=== PATIENT | female | born 1940 | race Caucasian/White ===

== ENCOUNTER 2023-12-11 12:20 | Inpatient (IN) | payer MEDICARE ==
[~2023-12-11] VITALS: Ht 167.6 cm; Wt 95.3 kg
[2023-12-11] MEDS ORDERED: ZIPRASIDONE 20 MG VIAL IM STA (12:42)
[2023-12-11] MEDS ORDERED: LACTATED RINGER'S 1,000 ML INJ ONE ×2 (12:45→14:00)
[2023-12-11 13:25] LABS: BASOPHILS % 0.2 % (0.0-1.0); EOSINOPHILS # (AUTO) 0.1 (0.0-0.4); EOSINOPHILS % 0.3 % (0.0-6.0); HEMATOCRIT 47.9 % (34.2-44.1); HEMOGLOBIN 15.6 g/dL (12.0-16.0); LYMPHOCYTES # (AUTO) 0.8 (1.0-3.2); LYMPHOCYTES % 5.2 % (18.0-39.1); MEAN CORPUSCULAR HGB CONC 32.6 g/dL (31-35); MEAN CORPUSCULAR VOLUME 92.1 fL (81-99); MONOCYTES # (AUTO) 0.9 (0.2-0.8); MONOCYTES % 5.9 % (4.4-11.3); NEUTROPHILS % 87.2 % (38.7-80.0); PLATELET COUNT 165 x10e3/uL (140-360); RED CELL DISTRIBUTION WIDTH 13.2 % (11.7-14.4); WHITE BLOOD COUNT 16.03 x10e3/uL (4.8-10.8)
[2023-12-11 13:33] LABS: CLARITY,URINE SL CLOUDY (CLEAR); COLOR,URINE YELLOW (YELLOW)
[2023-12-11 13:34] LABS: LEUKOCYTE ESTERASE ,URINE NEGATIVE (NEGATIVE); NITRITE,URINE NEGATIVE (NEGATIVE); PH,URINE 5.5 (5 - 7)
[2023-12-11 13:35] LABS: BILIRUBIN,URINE SMALL (NEGATIVE); GLUCOSE, URINE 500 (NEGATIVE); KETONES,URINE 2+ (NEGATIVE); PROTEIN,URINE DIPSTICK 1+ (NEGATIVE); URINE UROBILINOGEN 0.2 mg/dL (0.2 - 1)
[2023-12-11 13:41] LABS: RBC,URINE 0-5 /HPF (0-5); WBC,URINE (MAN) 0-5 /HPF (0-5)
[2023-12-11 13:42] LABS: BACTERIA,URINE FEW /HPF; EPITHELIAL CELLS,URINE MODERATE /LPF; YEAST,URINE FEW
[2023-12-11 13:44] LABS: ALBUMIN 4.2 g/dL (3.5-5.0); ALBUMIN/GLOBULIN RATIO 0.9 (0.8-2.0); ANION GAP 21.1 mmol/L (8-16); BILIRUBIN,TOTAL 1.3 mg/dL (0.2-1.2); CALCIUM 11.1 mg/dL (8.4-10.2); CREATININE, SERUM 1.4 mg/dL (0.57-1.11); POTASSIUM 4.1 mmol/L (3.5-5.1); TOTAL PROTEIN 8.8 g/dL (6.5-8.1)
[2023-12-11] MEDS ORDERED: INSULIN REGULAR, HUMAN 100 UNIT/1 ML IV ONE (14:00)
[2023-12-11 14:45] VITALS: PULSE 102; RESP 18; O2SAT 96
[2023-12-11 16:04] VITALS: BP 157/97; PULSE 63; RESP 19; TEMP 97.9; O2SAT 96
[2023-12-11] MEDS: SODIUM CHLORIDE 0.9% 1000ML 1,000 ML IV SCH (16:21)
[2023-12-11] MEDS ORDERED: NAMZARIC 28 MG1 EACH (18:33)
[2023-12-11] MEDS ORDERED: QUETIAPINE FUMA25 MG PO (18:33)
[2023-12-11] MEDS ORDERED: LIPITOR20 MG PO (18:33)
[2023-12-11] MEDS ORDERED: INSULIN GL100 UNIT/3 (18:33)
[2023-12-11] MEDS ORDERED: AMLODIPINE BESY10 MG PO (18:33)
[2023-12-11 19:00] VITALS: BP 139/94; PULSE 73; RESP 18; TEMP 98; O2SAT 94
[2023-12-11 20:00] VITALS: BP 139/94; PULSE 73; RESP 18; TEMP 98; O2SAT 94
[2023-12-11 20:15] VITALS: PULSE 71; RESP 18; O2SAT 96
[2023-12-11] MEDS ORDERED: DEXTROSE 50% SYRINGE 50 ML IV PRN (20:45)
[2023-12-11 21:00] VITALS: BP 139/94; PULSE 78; RESP 18; TEMP 98; O2SAT 94
[2023-12-11] MEDS: INSULIN GLARGINE 100 UNITS/ML VIAL SQ SCH (21:30)
[2023-12-11] MEDS: INSULIN LISPRO 100 UNIT/1 ML 3ML VIAL SQ SCH (21:30)
[2023-12-11] MEDS: ATORVASTATIN 20 MG TAB PO SCH (21:30)
[2023-12-11] MEDS: ZIPRASIDONE 20 MG VIAL IM PRN (21:30)
[2023-12-12] VITALS (12 sets, daily range): BP systolic 115–149; BP diastolic 59–113; PULSE 74–104; RESP 16–18; TEMP 97–98.5; O2SAT 93–96
[2023-12-12] MEDS: SODIUM CHLORIDE 0.9% 1000ML 1,000 ML IV SCH (00:59)
[2023-12-12] MEDS: ZIPRASIDONE 20 MG VIAL IM PRN ×2 (01:02→12:52)
[2023-12-12] MEDS: INSULIN LISPRO 100 UNIT/1 ML 3ML VIAL SQ SCH ×5 (01:04→21:00)
[2023-12-12] MEDS: AMLODIPINE BESYLATE 10 MG TAB PO SCH (06:12)
[2023-12-12 06:19] LABS: BASOPHILS % 0.3 % (0.0-1.0); EOSINOPHILS % 0.2 % (0.0-6.0); HEMATOCRIT 43.4 % (34.2-44.1); HEMOGLOBIN 13.9 g/dL (12.0-16.0); LYMPHOCYTES # (AUTO) 1.1 (1.0-3.2); LYMPHOCYTES % 9.8 % (18.0-39.1); MEAN CORPUSCULAR HEMOGLOBIN 29.9 pg (28-32); MEAN CORPUSCULAR VOLUME 93.3 fL (81-99); MONOCYTES % 8.6 % (4.4-11.3); NEUTROPHILS # (AUTO) 9.1 (2.1-6.9); NEUTROPHILS % 79.7 % (38.7-80.0); PLATELET COUNT 146 x10e3/uL (140-360); RED BLOOD COUNT 4.65 x10e6/uL (3.6-5.1); RED CELL DISTRIBUTION WIDTH 13.4 % (11.7-14.4); WHITE BLOOD COUNT 11.34 x10e3/uL (4.8-10.8)
[2023-12-12 06:33] LABS: ANION GAP 17.1 mmol/L (8-16); CALCIUM 9.7 mg/dL (8.4-10.2); CREATININE, SERUM 0.87 mg/dL (0.57-1.11)
[2023-12-12 06:43] LABS: POTASSIUM 3.1 mmol/L (3.5-5.1)
[2023-12-12] MEDS ORDERED: QUETIAPINE FUMARATE 25 MG TAB PO SCH (09:00)
[2023-12-12] MEDS ORDERED: SODIUM CHLORIDE 0.45% 1,000 ML ONE ×2 (11:29→13:02)
[2023-12-12] MEDS: SODIUM BICARBONATE 8.4% 50 ML in SODIUM CHLORIDE 0.45% 1,000 ML IV SCH (17:29)
[2023-12-12] MEDS: QUETIAPINE FUMARATE 25 MG TAB PO SCH ×2 (17:29→21:08)
[2023-12-12] MEDS ORDERED: IOPAMIDOL 370 MG/ML 100 ML INFUS..BTL INJ ONE (18:43)
[2023-12-12] MEDS: INSULIN GLARGINE 100 UNITS/ML VIAL SQ SCH (21:00)
[2023-12-12] MEDS: ATORVASTATIN 20 MG TAB PO SCH (21:09)
[2023-12-13] VITALS (8 sets, daily range): BP systolic 128–148; BP diastolic 89–105; PULSE 62–79; RESP 17–20; TEMP 97.6–98.3; O2SAT 92–95
[2023-12-13] MEDS: AMLODIPINE BESYLATE 10 MG TAB PO SCH (05:35)
[2023-12-13 05:55] LABS: BASOPHILS % 0.2 % (0.0-1.0); EOSINOPHILS % 0.4 % (0.0-6.0); HEMATOCRIT 42.3 % (34.2-44.1); HEMOGLOBIN 13.6 g/dL (12.0-16.0); LYMPHOCYTES # (AUTO) 1.3 (1.0-3.2); LYMPHOCYTES % 15.6 % (18.0-39.1); MEAN CORPUSCULAR HEMOGLOBIN 29.9 pg (28-32); MEAN CORPUSCULAR HGB CONC 32.2 g/dL (31-35); MONOCYTES # (AUTO) 0.8 (0.2-0.8); MONOCYTES % 9.5 % (4.4-11.3); NEUTROPHILS # (AUTO) 6.1 (2.1-6.9); NEUTROPHILS % 72.6 % (38.7-80.0); PLATELET COUNT 138 x10e3/uL (140-360); RED BLOOD COUNT 4.55 x10e6/uL (3.6-5.1); RED CELL DISTRIBUTION WIDTH 13.6 % (11.7-14.4); WHITE BLOOD COUNT 8.33 x10e3/uL (4.8-10.8)
[2023-12-13] MEDS: SODIUM BICARBONATE 8.4% 50 ML in SODIUM CHLORIDE 0.45% 1,000 ML IV SCH (06:10)
[2023-12-13 06:27] LABS: ANION GAP 14.7 mmol/L (8-16); CALCIUM 9.1 mg/dL (8.4-10.2); CREATININE, SERUM 0.76 mg/dL (0.57-1.11)
[2023-12-13 06:34] LABS: POTASSIUM 2.7 mmol/L (3.5-5.1)
[2023-12-13] MEDS: INSULIN LISPRO 100 UNIT/1 ML 3ML VIAL SQ SCH ×4 (07:30→21:00)
[2023-12-13] MEDS: QUETIAPINE FUMARATE 25 MG TAB PO SCH ×3 (09:38→21:32)
[2023-12-13] MEDS: POTASSIUM CHLORIDE 10MEQ EA PO SCH ×3 (10:10→14:00)
[2023-12-13] MEDS: SOD CHL 0.45%/POT CHL 20MEQ 1,000 ML IV SCH ×2 (10:10→21:42)
[2023-12-13] MEDS: NYSTATIN 100,000 UNITS/GM CRM 30GM TUBE TOP SCH (17:51)
[2023-12-13] MEDS: INSULIN GLARGINE 100 UNITS/ML VIAL SQ SCH (21:00)
[2023-12-13] MEDS: ATORVASTATIN 20 MG TAB PO SCH (21:32)
[2023-12-14] VITALS (7 sets, daily range): BP systolic 121–146; BP diastolic 77–97; PULSE 55–83; RESP 16–19; TEMP 97.4–97.8; O2SAT 94–96
[2023-12-14] MEDS: AMLODIPINE BESYLATE 10 MG TAB PO SCH (05:18)
[2023-12-14] MEDS: SOD CHL 0.45%/POT CHL 20MEQ 1,000 ML IV SCH ×2 (05:32→17:50)
[2023-12-14 07:08] LABS: BASOPHILS % 0.3 % (0.0-1.0); EOSINOPHILS % 0.1 % (0.0-6.0); HEMATOCRIT 40.1 % (34.2-44.1); HEMOGLOBIN 13.1 g/dL (12.0-16.0); LYMPHOCYTES # (AUTO) 1.2 (1.0-3.2); LYMPHOCYTES % 15.5 % (18.0-39.1); MEAN CORPUSCULAR HEMOGLOBIN 29.7 pg (28-32); MEAN CORPUSCULAR HGB CONC 32.7 g/dL (31-35); MEAN CORPUSCULAR VOLUME 90.9 fL (81-99); MONOCYTES # (AUTO) 0.7 (0.2-0.8); MONOCYTES % 9.7 % (4.4-11.3); NEUTROPHILS # (AUTO) 5.3 (2.1-6.9); NEUTROPHILS % 70.9 % (38.7-80.0); PLATELET COUNT 126 x10e3/uL (140-360); RED BLOOD COUNT 4.41 x10e6/uL (3.6-5.1); RED CELL DISTRIBUTION WIDTH 13.4 % (11.7-14.4); WHITE BLOOD COUNT 7.46 x10e3/uL (4.8-10.8)
[2023-12-14 07:30] LABS: ANION GAP 17.2 mmol/L (8-16); CALCIUM 8.6 mg/dL (8.4-10.2); CREATININE, SERUM 0.75 mg/dL (0.57-1.11)
[2023-12-14] MEDS: INSULIN LISPRO 100 UNIT/1 ML 3ML VIAL SQ SCH ×4 (07:30→22:08)
[2023-12-14 07:32] LABS: MAGNESIUM 1.5 MG/DL (1.3-2.1)
[2023-12-14 07:39] LABS: POTASSIUM 3.2 mmol/L (3.5-5.1)
[2023-12-14] MEDS: QUETIAPINE FUMARATE 25 MG TAB PO SCH ×3 (08:48→22:04)
[2023-12-14] MEDS: NYSTATIN 100,000 UNITS/GM CRM 30GM TUBE TOP SCH ×2 (09:00→22:05)
[2023-12-14] MEDS: ATORVASTATIN 20 MG TAB PO SCH (22:04)
[2023-12-14] MEDS: INSULIN GLARGINE 100 UNITS/ML VIAL SQ SCH (22:07)
[2023-12-15] VITALS (8 sets, daily range): BP systolic 118–158; BP diastolic 67–93; PULSE 53–103; RESP 16–20; TEMP 97–98.2; O2SAT 91–98
[2023-12-15] MEDS: SOD CHL 0.45%/POT CHL 20MEQ 1,000 ML IV SCH ×3 (00:01→22:15)
[2023-12-15] MEDS: AMLODIPINE BESYLATE 10 MG TAB PO SCH (06:13)
[2023-12-15] MEDS: INSULIN LISPRO 100 UNIT/1 ML 3ML VIAL SQ SCH ×4 (07:30→21:00)
[2023-12-15] MEDS: QUETIAPINE FUMARATE 25 MG TAB PO SCH ×3 (09:59→21:38)
[2023-12-15] MEDS: NYSTATIN 100,000 UNITS/GM CRM 30GM TUBE TOP SCH ×2 (10:04→21:38)
[2023-12-15] MEDS ORDERED: INSULIN GLARGINE 100 UNITS/ML VIAL SQ SCH (21:00)
[2023-12-15] MEDS: ATORVASTATIN 20 MG TAB PO SCH (21:38)
[2023-12-16] VITALS (7 sets, daily range): BP systolic 106–139; BP diastolic 72–98; PULSE 70–90; RESP 16–21; TEMP 97–98.3; O2SAT 95–99
[2023-12-16] MEDS: AMLODIPINE BESYLATE 10 MG TAB PO SCH (05:43)
[2023-12-16] MEDS: INSULIN LISPRO 100 UNIT/1 ML 3ML VIAL SQ SCH ×2 (07:30→12:23)
[2023-12-16] MEDS: NYSTATIN 100,000 UNITS/GM CRM 30GM TUBE TOP SCH (09:02)
[2023-12-16] MEDS: QUETIAPINE FUMARATE 25 MG TAB PO SCH (09:02)
[2023-12-16] MEDS: SOD CHL 0.45%/POT CHL 20MEQ 1,000 ML IV SCH (09:06)
[2023-12-16] MEDS ORDERED: SEROQUEL25 MG PO ×2 (11:13→11:14)
[2023-12-16] MEDS ORDERED: SENOKOT-S TABL1 EACH PO (11:14)
[2023-12-16] MEDS ORDERED: INSULIN GLARGINE 100 UNITS/ML VIAL SQ SCH (21:00)
== END 2023-12-16 17:11 | disposition hospice, inpatient (51) | DRG 637 ==
LOC: ER 12:41 → ERHOLD 14:38 → MED/SURG3 15:55
PROVIDERS: ADMIT Internal Medicine; ATTEND Internal Medicine
PROC: 4A043R1 Measurement of Venous Saturation, Peripheral, Percutaneous Approach (ICD-10-PCS; principal; 2023-12-11)
DX: E11.10 Type 2 diabetes mellitus with ketoacidosis without coma (principal); G93.41 Metabolic encephalopathy; F02.818 Dementia in other diseases classified elsewhere, unspecified severity, with other behavioral disturbance; F28 Other psychotic disorder not due to a substance or known physiological condition; G30.9 Alzheimer's disease, unspecified; R53.81 Other malaise; E86.0 Dehydration; E11.65 Type 2 diabetes mellitus with hyperglycemia; E78.5 Hyperlipidemia, unspecified; E11.40 Type 2 diabetes mellitus with diabetic neuropathy, unspecified; Z79.4 Long term (current) use of insulin; Z87.440 Personal history of urinary (tract) infections
CPT/HCPCS: 36415; 51700; 70450; 71045; 71260; 74177; 74230; 80048; 80053; 81001; 82607; 82948; 83036; 83735; 84100; 84439; 84443; 84484; 85025; 93005; 94799; 99284; J0696; J1815; J3486; J7030; Q9967